=== PATIENT | female | born 1960 | race Caucasian/White ===

== ENCOUNTER 2020-07-24 12:49 | Emergency (ER) | payer OTHER ==
[2020-07-24 14:07] LABS: BASOPHIL 0.5 % (0-2); EOSINOPHIL 0.3 % (0-5); HCT 38.3 % (37.0-47.0); LYMPHOCYTE 18.9 % (15-48); MCH 32.2 pg (25.0-31.0); MCHC 33.9 g/dL (32.0-36.0); MCV 94.8 fL (78.0-100.0); MONOCYTE 6.9 % (0-12); NEUTROPHIL 72.9 % (41-80); NRBC 0; PLT 197 K/uL (150-400); RBC 4.04 M/uL (4.20-5.40); WBC 6.3 K/uL (4.0-10.5)
[2020-07-24 14:20] LABS: BUN/CREAT RATIO (CALC) 21.2 RATIO; CREATININE 0.66 mg/dL (0.51-0.95); POTASSIUM 3.9 mmol/L (3.5-5.1)
[2020-07-24] MEDS ORDERED: ANTIVERT25 MG PO (14:56)
[2020-07-24] MEDS ORDERED: ONDANSETRON ODT4 MG PO (14:56)
== END 2020-07-24 15:15 | disposition home or self-care (01) ==
LOC: FER 12:49
PROVIDERS: Emergency Medicine
DX: H81.10 Benign paroxysmal vertigo, unspecified ear (principal)
CPT/HCPCS: 36415; 80048; 85025; 99284